=== PATIENT | male | born 1980 | race Caucasian/White ===

== ENCOUNTER 2017-10-01 18:05 | Emergency (ER) | payer MEDICAID ==
[2017-10-01] MEDS ORDERED: HYDROmorphONE/DILAUDID 1 MG/ML INJ ONE (18:10)
[2017-10-01] MEDS ORDERED: NS 1,000 ML IV ONE (18:12)
[2017-10-01] MEDS ORDERED: HYDROmorphONE/DILAUDID 2 MG/ML INJ IVP ONE (18:12)
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
[2017-10-01] MEDS ORDERED: HALOPERIDOL LACT 5 MG/ML INJ IVP ONE ×2 (18:28→18:43)
[2017-10-01] MEDS ORDERED: LR 1,000 ML IV ONE (18:28)
[2017-10-01] MEDS ORDERED: HALOPERIDOL LACT 5 MG/ML INJ ONE (18:29)
[2017-10-01 19:17] VITALS: BP 140/84
== END 2017-10-01 19:26 | disposition short-term general hospital (02) ==
LOC: EDUNIT#
DX: T24.231A Burn of second degree of right lower leg, initial encounter (principal); T24.232A Burn of second degree of left lower leg, initial encounter; T23.101A Burn of first degree of right hand, unspecified site, initial encounter; T23.102A Burn of first degree of left hand, unspecified site, initial encounter; F17.200 Nicotine dependence, unspecified, uncomplicated; T31.0 Burns involving less than 10% of body surface; E86.9 Volume depletion, unspecified; W40.1XXA Explosion of explosive gases, initial encounter; Y99.8 Other external cause status
CPT/HCPCS: 96374; J1170; J1630

== ENCOUNTER 2018-10-04 12:49 | Emergency (ER) | payer MEDICAID | END 2018-10-04 15:09 | disposition home or self-care (01) ==